=== PATIENT | male | born 1980 | race African-American/Black ===

== ENCOUNTER → 2017-01-26 | Outpatient (CLI) | payer MEDICAID | LOC: RAD 08:40 | PROVIDERS: ATTEND Internal Medicine Geriatric Medicine | DX: M54.16 Radiculopathy, lumbar region (principal) | CPT/HCPCS: 72148 ==

== ENCOUNTER 2018-07-10 02:53 | Emergency (ER) | payer MEDICAID ==
[2018-07-10 02:57] VITALS: BP 109/75
--- NOTE | 2018-07-10 04:42 | ER Document Report ---
ED Oral Problem - General Chief Complaint: Toothache Stated Complaint: TOOTH PAIN Time Seen by Provider: 07/10/18 04:06 Notes: Patient is a 38-year-old male presenting to the emergency department complaining of left lower tooth pain. Patient states pain started on and has increased since. Patient denies any fever, URI symptoms, nausea, vomiting, diarrhea, shortness of breath, abdominal pain, chest pain. Patient states the last time he was to the dentist was a year ago. Patient denies smoking, denies illicit drug use, does state he occasionally partakes in alcohol. Past medical history of PTSD. Medications: Wellbutrin, Prozac, Seroquel Allergies: Toradol, penicillin TRAVEL OUTSIDE OF THE [place] IN LAST 30 DAYS: No - Related Data Allergies/Adverse Reactions: ibuprofen [Ibuprofen] Allergy (Mild, Verified 09/12/15 14:42) Hives nickel [Nickel] Allergy (Mild, Verified 09/12/15 14:42) ketorolac tromethamine [From Toradol] Allergy (Verified 09/12/15 14:42) naproxen [Naproxen] Allergy (Verified 09/12/15 14:42) Past Medical History - General Information source: Patient - Social History Smoking Status: Unknown if Ever Smoked Chew tobacco use (# tins/day): No Frequency of alcohol use: None Drug Abuse: None Lives with: Family Family History: Reviewed & Not Pertinent, DM Patient has suicidal ideation: No Patient has homicidal ideation: No Pulmonary Medical History: Reports: Hx Asthma Renal/ Medical History: Denies: Hx Peritoneal Dialysis Musculoskeletal Medical History: Reports Hx Musculoskeletal Deformity Psychiatric Medical History: Reports: Hx Depression, Hx Post Traumatic Stress Disorder - Treated by the [place] Past Surgical History: Reports: Hx Genitourinary Surgery - circumcised - Immunizations Immunizations up to date: Yes Hx Diphtheria, Pertussis, Tetanus Vaccination: Yes - tetanus up to date, 2 years ago Review of Systems - Review of Systems Constitutional: See HPI EENT: See HPI Cardiovascular: See HPI Respiratory: See HPI Gastrointestinal: No symptoms reported Genitourinary: No symptoms reported Male Genitourinary: No symptoms reported Musculoskeletal: No symptoms reported Skin: See HPI Hematologic/Lymphatic: No symptoms reported Neurological/Psychological: No symptoms reported Physical Exam - Vital signs Vitals: Temp Pulse Resp BP Pulse Ox 97.8 F 92 15 109/75 100 07/10/18 02:56 07/10/18 02:56 07/10/18 02:56 07/10/18 02:56 07/10/18 02:56 - Notes Notes: GENERAL: Alert, interacts well. No acute distress. HEAD: Normocephalic, atraumatic. EYES: Pupils equal, round, and reactive to light. Extraocular movements intact. ENT: Oral mucosa moist, tongue midline. Obvious dental caries seen throughout lower and upper teeth. Tooth #17 is the one patient states hurts, no surrounding redness or swelling. Tooth with obvious dental caries, no fracture seen. No ludwigs angina. NECK: Full range of motion. Supple. Trachea midline. LUNGS: Clear to auscultation bilaterally, no wheezes, rales, or rhonchi. No respiratory distress. HEART: Regular rate and rhythm. No murmur ABDOMEN: Soft, non-tender. Non-distended. Bowel sounds present in all 4 quadrants. EXTREMITIES: Moves all 4 extremities spontaneously. No edema, normal radial and dorsalis pedis pulses bilaterally. No cyanosis. BACK: no cervical, thoracic, lumbar midline tenderness. No saddle anesthesia, normal distal neurovascular exam. NEUROLOGICAL: Alert and oriented x3. Normal speech. . PSYCH: Normal affect, normal mood. SKIN: Warm, dry, normal turgor. No rashes or lesions noted. Course - Re-evaluation Re-evalutation: Talk to the patient in depth about need for [id number] Tylenol and Motrin , and antibiotic use. Also talked to the patient about need to follow-up with a dentist. Clinic will be given in discharge instructions. Return precautions given. - Vital Signs Vital signs: Temp Pulse Resp BP Pulse Ox 97.8 F 92 15 109/75 100 07/10/18 02:56 07/10/18 02:56 07/10/18 02:56 07/10/18 02:56 07/10/18 02:56 Discharge - Discharge Clinical Impression: Toothache, Dental caries Condition: Stable Disposition: HOME, SELF-CARE Instructions: Toothache ([facility]) Additional Instructions: Toothache Your pain is due to dental decay. The tooth must be repaired in order for you to feel better. You will, therefore, be referred to a dentist. Severe swelling or drainage around a tooth usually means a deep dental abscess. This also requires evaluation and treatment by the dentist, but antibiotics may be prescribed while awaiting dental treatment. You should be rechecked immediately if you develop major swelling of the face, increasing pain, a lump in the jaw or gums, headache, or fever. [facility] [address], [address] Prescriptions: Clindamycin HCl 150 mg PO Q6 #56 capsule Referrals: NIMISHA GRAY MD [Primary Care Provider] - Follow up as needed
== END 2018-07-10 05:06 | disposition home or self-care (01) ==
LOC: ER 02:53
DX: K02.9 Dental caries, unspecified (principal); K08.89 Other specified disorders of teeth and supporting structures; J45.909 Unspecified asthma, uncomplicated; F43.10 Post-traumatic stress disorder, unspecified; F32.9 Major depressive disorder, single episode, unspecified; Z79.899 Other long term (current) drug therapy; Z88.5 Allergy status to narcotic agent; Z88.0 Allergy status to penicillin; Z88.6 Allergy status to analgesic agent
CPT/HCPCS: 99282